=== PATIENT | female | born 1940 | race Two or more races ===

== ENCOUNTER 2023-12-20 22:07 | Inpatient (IN) | payer MEDICARE, OTHER ==
[~2023-12-20] VITALS: Ht 160 cm; Wt 63.0 kg
[2023-12-20 23:25] LABS: Basophils # (auto) 0 10 ^3/uL (0-0.2); Basophils % (auto) 0.6 % (0.0-2.0); Eosinophils # (auto) 0 10 ^3/uL (0-0.8); Eosinophils % (auto) 0.1 % (0.0-7.0); Hematocrit 41.4 % (36.0-46.0); Hemoglobin 13.3 g/dL (12.2-16.2); Lymphocytes # (auto) 1.5 10 ^3/uL (0.4-5.4); Lymphocytes % (auto) 24.6 % (10.0-50.0); Mean Corpuscular Hemoglobin 28.3 pg (28.0-32.0); Mean Corpuscular Hgb Conc. 32.2 g/dL (32.0-36.0); Mean Corpuscular Volume 87.8 fL (80.0-100.0); Monocytes # (auto) 0.9 10 ^3/uL (0-1.3); Monocytes % (auto) 15.5 % (0.0-12.0); Neutrophils # (auto) 3.5 10 ^3/uL (1.6-8.6); Neutrophils % (auto) 59.2 % (37.0-80.0); Nucleated Red Blood Cells % 0.1 %; Red Blood Cells 4.71 10^6/uL (4.0-5.20); Red Cell Distribution Width 17.1 % (11.8-14.3); White Blood Cell 5.9 10^3/uL (4.4-10.8)
[2023-12-20 23:40] LABS: Alanine Aminotransferase 13 U/L (7-40); Albumin 3.5 g/dL (3.2-4.8); Alkaline Phosphatase 163 U/L (46-116); Anion Gap 4 (5-15); Aspartate Aminotransferase 17 U/L (13-40); BUN/Creatinine Ratio 22.2 (10.0-20.0); Blood Alcohol 4.4 mg/dL (<10); Blood Urea Nitrogen 18 mg/dL (9-23); Calcium 8.9 mg/dL (8.7-10.4); Carbon Dioxide 34 mmol/L (20-30); Chloride 108 mmol/L (98-107); Glucose 132 mg/dL (74-106); Potassium 3.7 mmol/L (3.5-5.1); Sodium 146 mmol/L (136-145)
[2023-12-20] MEDS: NALOXONE HCL 0.4 MG/ML VIAL IV ONE (23:40)
[2023-12-20 23:41] LABS: Bilirubin, Total 0.5 mg/dL (0.2-1.0); Total Protein 6.4 g/dL (5.7-8.2)
[2023-12-21] VITALS (8 sets, daily range): BP systolic 99–119; BP diastolic 52–77; PULSE 39–112; RESP 18–20; TEMP 98.1–99.8; O2SAT 86–94
[2023-12-21 04:41] LABS: Urine Bacteria MANY /hpf (None Seen); Urine Blood Negative /uL (Negative); Urine Clarity Turbid (Clear); Urine Color Yellow (Yellow); Urine Hyaline Cast MANY /lpf (0 - 2); Urine Mucus FEW (None Seen); Urine Protein, UAD TRACE (Negative); Urine Specific Gravity 1.016 (1.001-1.035); Urine Urobilinogen Normal (Negative); Urine WBC 27 /hpf (0 - 5)
[2023-12-21 04:50] LABS: Amphetamine Screen, Urine Neg (NEGATIVE); Barbiturate Scree,Urine Neg (NEGATIVE); Benzodiazephine Screen, Urine Neg (NEGATIVE); Cannabinoid Screen, Urine Neg (NEGATIVE); Cocaine Screen, Urine Neg (NEGATIVE); Opiate Scree,Urine Neg (NEGATIVE); Phencyclidine Screen, Urine Neg (NEGATIVE)
[2023-12-21] MEDS ORDERED: LISI40TA16 PO (08:41)
[2023-12-21] MEDS ORDERED: TRAM50TA2 PO (08:41)
[2023-12-21] MEDS ORDERED: NITROGLYCERIN 0.4 MG SL TAB SL PRN (09:30)
[2023-12-21] MEDS: SOD CHL 0.45% 1,000 ML IV SCH (09:30)
[2023-12-21] MEDS ORDERED: ACETAMINOPHEN 325 MG TAB PO PRN (09:30)
[2023-12-21] MEDS ORDERED: MORPHINE SULFATE INJ 2 MG/ml SYRG IV PRN (09:30)
[2023-12-21] MEDS: cefTRIAXone 1GM/50ML D5W 50 ML IV ONE (09:30)
[2023-12-21 09:42] LABS: Triglycerides 61 mg/dL (< 150)
[2023-12-21 09:43] LABS: LDL Cholesterol 87 mg/dL (< 100)
[2023-12-21 09:44] LABS: Cholesterol 141 mg/dL (< 200); HDL Cholesterol 38 mg/dL (40-59)
[2023-12-21] MEDS: ENOXAPARIN SOD 40 MG/0.4 ML SYRINGE SC SCH (10:00)
[2023-12-22] VITALS (7 sets, daily range): BP systolic 96–124; BP diastolic 57–76; PULSE 79–101; RESP 18–20; TEMP 97.3–100.9; O2SAT 91–98
[2023-12-22 08:56] LABS: Basophils # (auto) 0 10 ^3/uL (0-0.2); Basophils % (auto) 0.7 % (0.0-2.0); Eosinophils # (auto) 0.1 10 ^3/uL (0-0.8); Eosinophils % (auto) 1.9 % (0.0-7.0); Hematocrit 39.6 % (36.0-46.0); Hemoglobin 12.9 g/dL (12.2-16.2); Lymphocytes # (auto) 1.5 10 ^3/uL (0.4-5.4); Lymphocytes % (auto) 29.7 % (10.0-50.0); Mean Corpuscular Hemoglobin 28.2 pg (28.0-32.0); Mean Corpuscular Hgb Conc. 32.5 g/dL (32.0-36.0); Mean Corpuscular Volume 86.7 fL (80.0-100.0); Monocytes # (auto) 0.6 10 ^3/uL (0-1.3); Neutrophils # (auto) 2.7 10 ^3/uL (1.6-8.6); Neutrophils % (auto) 54.7 % (37.0-80.0); Nucleated Red Blood Cells % 0.1 %; Red Blood Cells 4.57 10^6/uL (4.0-5.20); Red Cell Distribution Width 16.5 % (11.8-14.3); White Blood Cell 4.9 10^3/uL (4.4-10.8)
[2023-12-22 09:22] LABS: Alanine Aminotransferase 12 U/L (7-40); Albumin 3.2 g/dL (3.2-4.8); Alkaline Phosphatase 129 U/L (46-116); Anion Gap 6 (5-15); Aspartate Aminotransferase 20 U/L (13-40); BUN/Creatinine Ratio 33.9 (10.0-20.0); Bilirubin, Total 0.5 mg/dL (0.2-1.0); Blood Urea Nitrogen 19 mg/dL (9-23); Calcium 9.1 mg/dL (8.7-10.4); Carbon Dioxide 34 mmol/L (20-30); Chloride 104 mmol/L (98-107); Glucose 82 mg/dL (74-106); Potassium 3.9 mmol/L (3.5-5.1); Sodium 144 mmol/L (136-145)
[2023-12-22] MEDS: cefTRIAXone 1GM/50ML D5W 50 ML IV SCH (10:55)
[2023-12-22] MEDS ORDERED: AZITHROMYCIN 500MG/ 250ML 250 ML IV ONE (21:00)
[2023-12-22] MEDS: PANTOPRAZOLE 40mg/50ML NS AE 50 ML IV SCH (22:45)
[2023-12-22] MEDS: AZITHROMYCIN 500MG/ 250ML 250 ML IV ONE (22:54)
[2023-12-23] VITALS (16 sets, daily range): BP systolic 106–123; BP diastolic 58–83; PULSE 8–90; RESP 15–20; TEMP 97.7–98.4; O2SAT 91–99
[2023-12-23] MEDS ORDERED: ALBUTEROL SULF 2 MG/5ML ORAL SYRUP PO SCH
[2023-12-23] MEDS: ALBUTEROL SULF 2.5 MG/0.5ML(0.5%) NEB SOLN NEB PRN (00:33)
[2023-12-23] MEDS: IPRATROPIUM BROM 0.5 MG/2.5ML INH SOL NEB SCH (00:34)
[2023-12-23] MEDS: PANTOPRAZOLE 80 MG in SODIUM CHL 0.9% 100 ML IV ONE (08:01)
[2023-12-23 08:35] LABS: Basophils # (auto) 0 10 ^3/uL (0-0.2); Basophils % (auto) 0.7 % (0.0-2.0); Eosinophils # (auto) 0.2 10 ^3/uL (0-0.8); Eosinophils % (auto) 3.9 % (0.0-7.0); Hematocrit 38.5 % (36.0-46.0); Hemoglobin 12.7 g/dL (12.2-16.2); Lymphocytes # (auto) 1.4 10 ^3/uL (0.4-5.4); Lymphocytes % (auto) 35.4 % (10.0-50.0); Mean Corpuscular Hemoglobin 28.6 pg (28.0-32.0); Mean Corpuscular Volume 86.6 fL (80.0-100.0); Monocytes # (auto) 0.4 10 ^3/uL (0-1.3); Monocytes % (auto) 10.1 % (0.0-12.0); Neutrophils % (auto) 49.9 % (37.0-80.0); Nucleated Red Blood Cells % 0.1 %; Red Blood Cells 4.45 10^6/uL (4.0-5.20); Red Cell Distribution Width 16.3 % (11.8-14.3); White Blood Cell 3.9 10^3/uL (4.4-10.8)
[2023-12-23 08:55] LABS: Alanine Aminotransferase 15 U/L (7-40); Alkaline Phosphatase 133 U/L (46-116); Anion Gap 7 (5-15); BUN/Creatinine Ratio 25.5 (10.0-20.0); Blood Urea Nitrogen 12 mg/dL (9-23); Calcium 8.7 mg/dL (8.7-10.4); Carbon Dioxide 29 mmol/L (20-30); Chloride 104 mmol/L (98-107); Glucose 63 mg/dL (74-106); Potassium 4.1 mmol/L (3.5-5.1); Sodium 140 mmol/L (136-145)
[2023-12-23 08:57] LABS: Albumin 3.1 g/dL (3.2-4.8); Aspartate Aminotransferase 27 U/L (13-40); Bilirubin, Total 0.5 mg/dL (0.2-1.0)
[2023-12-23 08:58] LABS: Total Protein 5.9 g/dL (5.7-8.2)
[2023-12-23] MEDS: predniSONE 20 MG TAB PO SCH (09:09)
[2023-12-23 09:31] LABS: Free T3 2.4 pg/mL (2.3-4.2)
[2023-12-23 09:33] LABS: Free T4 (Free Thyroxine) 1.11 ng/dL (0.89-1.76)
[2023-12-23] MEDS: PANTOPRAZOLE 40 MG/10 ML VIAL INJ IV SCH (10:00)
[2023-12-23] MEDS ORDERED: predniSONE 20 MG TAB PO SCH (10:00)
[2023-12-23] MEDS ORDERED: AZITHROMYCIN 500MG/ 250ML 250 ML IV SCH ×2 (10:00)
[2023-12-23] MEDS ORDERED: PANTOPRAZOLE 40mg/50ML NS AE 50 ML IV SCH (21:15)
[2023-12-24] VITALS (13 sets, daily range): BP systolic 111–148; BP diastolic 67–84; PULSE 60–86; RESP 17–20; TEMP 97.6–98.2; O2SAT 93–99
[2023-12-24 06:40] LABS: Basophils # (auto) 0 10 ^3/uL (0-0.2); Basophils % (auto) 0.4 % (0.0-2.0); Eosinophils # (auto) 0 10 ^3/uL (0-0.8); Eosinophils % (auto) 0.2 % (0.0-7.0); Hematocrit 38.2 % (36.0-46.0); Hemoglobin 12.3 g/dL (12.2-16.2); Lymphocytes # (auto) 1.2 10 ^3/uL (0.4-5.4); Lymphocytes % (auto) 38.2 % (10.0-50.0); Mean Corpuscular Hemoglobin 27.7 pg (28.0-32.0); Mean Corpuscular Hgb Conc. 32.3 g/dL (32.0-36.0); Mean Corpuscular Volume 85.8 fL (80.0-100.0); Monocytes # (auto) 0.5 10 ^3/uL (0-1.3); Monocytes % (auto) 14.7 % (0.0-12.0); Neutrophils # (auto) 1.5 10 ^3/uL (1.6-8.6); Neutrophils % (auto) 46.5 % (37.0-80.0); Nucleated Red Blood Cells % 0.5 %; Red Blood Cells 4.46 10^6/uL (4.0-5.20); Red Cell Distribution Width 16.3 % (11.8-14.3); White Blood Cell 3.1 10^3/uL (4.4-10.8)
[2023-12-24 06:43] LABS: Alanine Aminotransferase 19 U/L (7-40); Albumin 3.2 g/dL (3.2-4.8); Alkaline Phosphatase 129 U/L (46-116); Anion Gap 4 (5-15); Aspartate Aminotransferase 24 U/L (13-40); Bilirubin, Total 0.5 mg/dL (0.2-1.0); Blood Urea Nitrogen 16 mg/dL (9-23); Calcium 9.4 mg/dL (8.7-10.4); Carbon Dioxide 34 mmol/L (20-30); Chloride 104 mmol/L (98-107); Glucose 101 mg/dL (74-106); Potassium 3.7 mmol/L (3.5-5.1); Sodium 142 mmol/L (136-145); Total Protein 5.9 g/dL (5.7-8.2)
[2023-12-24] MEDS: ENOXAPARIN SOD 40 MG/0.4 ML SYRINGE SC SCH (08:56)
[2023-12-24] MEDS: AZITHROMYCIN 500MG/ 250ML 250 ML IV SCH (10:41)
[2023-12-24] MEDS: ALBUTEROL SULF 2.5 MG/0.5ML(0.5%) NEB SOLN NEB SCH (12:00)
== END 2023-12-24 20:29 | DRG 871 ==
LOC: EDBD 22:07 → ER 22:07 → TELE 12-21 09:24 → TELE-CENTR 12-21 11:34
PROVIDERS: ADMIT Internal Medicine Geriatric Medicine; ATTEND Internal Medicine Geriatric Medicine
DX: A41.9 Sepsis, unspecified organism (principal); G92.8 Other toxic encephalopathy; J96.01 Acute respiratory failure with hypoxia; J18.9 Pneumonia, unspecified organism; E87.0 Hyperosmolality and hypernatremia; N30.00 Acute cystitis without hematuria; J44.1 Chronic obstructive pulmonary disease with (acute) exacerbation; M96.842 Postprocedural seroma of a musculoskeletal structure following a musculoskeletal system procedure; I10 Essential (primary) hypertension; M16.11 Unilateral primary osteoarthritis, right hip; D69.6 Thrombocytopenia, unspecified; E05.80 Other thyrotoxicosis without thyrotoxic crisis or storm; Z82.49 Family history of ischemic heart disease and other diseases of the circulatory system; Z82.3 Family history of stroke; Y84.8 Other medical procedures as the cause of abnormal reaction of the patient, or of later complication, without mention of misadventure at the time of the procedure; W01.0XXA Fall on same level from slipping, tripping and stumbling without subsequent striking against object, initial encounter; Y93.89 Activity, other specified; Y92.89 Other specified places as the place of occurrence of the external cause; Y99.8 Other external cause status
CPT/HCPCS: 36415; 71045; 73502; 73700; 80053; 80061; 80307; 80320; 81001; 82607; 83605; 83880; 84439; 84443; 84481; 84484; 85025; 87040; 87086; 93306; 94640; 96374; 97110; 97163; 97530; G0378; J2470